=== PATIENT | female | born 1975 | race Caucasian/White ===

== ENCOUNTER 2017-06-23 06:51 | Emergency (ER) | payer OTHER ==
[2017-06-23 07:18] LABS: APPEARANCE HAZY (CLEAR); BACTERIA FEW /hpf (NONE SEEN); BILIRUBIN NEGATIVE (NEGATIVE); COLOR YELLOW (YELLOW); GLUCOSE NEGATIVE (NEGATIVE); KETONE NEGATIVE (NEGATIVE); MUCUS <1+ /lpf (NONE SEEN); NITRITE NEGATIVE (NEGATIVE); PROTEIN NEGATIVE (NEGATIVE); UROBILINOGEN NORMAL (NORMAL)
[2017-06-23 07:40] LABS: BASOPHILS 0.1 % (0-2); EOSINOPHILS 1.3 % (0-7); HEMATOCRIT 30.4 % (36.0-48.0); HEMOGLOBIN 9.5 g/dL (12-16); IMMATURE GRANULOCYTES 1.1 % (0-5); LYMPHOCYTES 19.6 % (15-50); MCHC 31.3 g/dL (31.0-37.0); MCV 76.8 fL (80.0-100.0); MONOCYTES 5.9 % (2-11); PLATELET COUNT 393 10x3/uL (130-400); RBC 3.96 10x6/uL (4.00-5.40); RDW 15.6 % (11.5-14.5); WBC 14.6 10x3/uL (4.8-10.8)
[2017-06-23 08:03] LABS: ALBUMIN 3.3 g/dL (3.4-5.0); ANION GAP 13.6 mmol/L (8-16); BILIRUBIN - TOTAL 0.3 mg/dL (0.2-1.3); CALCIUM 9.7 mg/dL (8.5-10.1); CARBON DIOXIDE 26.5 mmol/L (21.0-32.0); CREATININE - SERUM 0.9 mg/dL (0.6-1.3); POTASSIUM - SERUM 4.1 mmol/L (3.5-5.1)
[2017-06-23 08:25] LABS: HCG URINE NEGATIVE (NEGATIVE)
[2017-06-25 17:35] VITALS: BMI 67.6
== END 2017-06-23 09:55 | disposition home or self-care (01) ==
LOC: D.ER 06:51
PROVIDERS: Emergency Medicine; Family Medicine
DX: K59.00 Constipation, unspecified (principal); N39.0 Urinary tract infection, site not specified; D64.9 Anemia, unspecified; I10 Essential (primary) hypertension; K21.9 Gastro-esophageal reflux disease without esophagitis; E11.9 Type 2 diabetes mellitus without complications

== ENCOUNTER 2017-06-25 07:29 | Inpatient (IN) | payer OTHER ==
[~2017-06-25] VITALS: Ht 154.9 cm; Wt 160.7 kg
--- NOTE | ~2017-06-25 | OP ---
PATIENT NAME: ASPEN GARNICA MEDICAL RECORD: [id number] :73 LOCATION:[id number] ADMISSION DATE:06/25/17 SURGEON: MAZIN TAM MD DATE OF OPERATION: 06/27/2017 PREOPERATIVE DIAGNOSES: 1. Symptomatic gallstones. 2. Hepatomegaly. POSTOPERATIVE DIAGNOSES: 1. Symptomatic gallstones. 2. Acute cholecystitis. 3. Hepatomegaly. PROCEDURE: Laparoscopic cholecystectomy, intraoperative cholangiography without immediate surgeon interpretation, and a 14-gauge core needle liver biopsy. SURGEON: Mazin Tam MD SHANK FAKER: None. BLOOD LOSS: Minimal. ANESTHESIA: General. COMPLICATIONS: None. This operation was made significantly more difficult due to the patient's body habitus. The cholangiogram was a nondiagnostic. The patient has a very large stone impacted in the infundibulum of the gallbladder. The gallbladder wall was very thickened and the gallbladder was very large. OPERATIVE COURSE: The patient was conveyed to the operating room electively on 06/27/2017. General anesthesia was induced by anesthesia staff. The abdomen was sterilely prepped and draped. A transverse incision was accomplished cephalad to the umbilicus. I dissected down to the anterior abdominal wall fascia. Stay sutures with #1 Vicryl were placed on either side of the midline, which was incised. The peritoneal cavity was entered sharply. A 12-mm trocar was placed. CO2 insufflation was begun. Once a sufficient pneumoperitoneum had been achieved, a 5-mm trocar was inserted through an incision in the epigastrium. Another 5-mm trocar was inserted through an incision in the right upper quadrant. Another 5-mm trocar was inserted far laterally in the right upper quadrant. During insertion of the trocars, there was no apparent injury to the bowels, any intraperitoneal or retroperitoneal structures. An abdominal survey was undertaken. The indication for the liver biopsy was hepatomegaly. Under laparoscopic guidance, I percutaneously accessed the right upper quadrant utilizing a 14-gauge core needle liver biopsy device. Cores were obtained over the convexity of the liver. The biopsy sites were made hemostatic with electrocautery. OPERATIVE REPORT [id number] ASPEN GARNICA I then advanced a cholangiogram trocar. I punctured the fundus of the gallbladder. I aspirated bile and pus. I then injected dye. Under real time fluoroscopy cholangiographic images were obtained and these are sent to the radiologist for interpretation. I then aspirated and withdrew the cholangiogram trocar. The gallbladder was grasped with difficulty due to its friability and thickened wall. It was retracted cephalad. Blunt dissection was begun with the triangle of Calot. One cystic artery and one cystic duct were identified. These were clipped multiply and divided between clips. I then excised the gallbladder from the liver bed. The gallbladder was placed within a bag retrieval device and was withdrawn through the supraumbilical fascial defect. I then enmassed another endoscopic retrieval bag and withdrew the very large gallstone. I irrigated and aspirated in the right upper quadrant. There was no bleeding even at low pressure of 8. All trocars were removed and the abdomen desufflated. The supraumbilical fascial incision was closed with multiple interrupted horizontal mattress #1 Vicryls. The subdermis cephalad to the umbilicus was closed with 3-0 Vicryls. The skin was approximated with a running intracuticular 3-0 Vicryl. The other trocar sites were closed with interrupted intracuticular 3-0 Vicryls. Benzoin and Steri-Strips were applied. The patient was then extubated and conveyed to post-anesthesia care unit where she was in stable condition. TRANSINT:[id number] Voice Confirmation ID: [id number] DOCUMENT ID: [id number] MAZIN TAM MD at 1157 CC: MIRIAN HUNTER [id number] DICTATION DATE: 06/27/17 [facility] MANAGER: 06/27/171912 DIS IN 06/29/17 [facility] [address] [id number]
--- NOTE | ~2017-06-25 | CN ---
PATIENT NAME:ASPEN GARNICA MEDICAL RECORD: [id number] : 73 LOCATION:[facility] [place] ADMIT DATE: 06/25/17 ACCOUNT: [id number] CONSULTING PHYSICIAN: DM TAM MD REFERRING PHYSICIAN: MIRIAN HUNTER MD DATE OF CONSULTATION: 06/25/2017 CHIEF COMPLAINT: Pain. HISTORY OF PRESENT ILLNESS: The patient has been having right upper quadrant pain as well as nausea and vomiting. I personally reviewed her CT images. I personally reviewed the CT report. The patient's condition is consistent with symptomatic gallstones. She does have Francisco sign. The pain radiates around to the right side to the back. She does have bloating. This is a consultation note addendum. For the typed portion of the consult note, please see the chart. My plan is going to be to perform a laparoscopic cholecystectomy, intraoperative cholangiography with possible liver biopsy sometime in the near future. For the typed portion of the consult note, please see the chart. This will include the past medical and surgical history, current medications, allergies, and family history. REVIEW OF SYSTEMS: Positive for nausea. Positive for vomiting. Positive for diarrhea. Positive for abdominal pain. No fever. PHYSICAL EXAMINATION: GENERAL: The patient does not appear acutely ill. She does appear chronically ill. VITAL SIGNS: Reviewed. The entire physical examination was performed in the presence of a female nurse. EARS: External ears appear normal. EYES: Extraocular movements are intact. NECK: Trachea is midline. CHEST: No intercostal retractions. PULMONARY: Nonlabored, no stridor. ABDOMEN: As described above. There is a large panniculus. INTEGUMENT: There is an intertriginous rash. BACK: No thoracic kyphosis. LYMPHATICS: No lymphangitic streaking of the exposed extremities. GAIT: Waddling gait. NEUROLOGIC: Nonfocal, no lethargy. The patient answers questions appropriately, moves all extremities well. PSYCHIATRIC: Normal affect. IMPRESSION: Symptomatic gallstones. PLAN: Laparoscopic cholecystectomy, intraoperative cholangiography, liver biopsy sometime in the near future. TRANSINT:[id number] Voice Confirmation ID: [id number] DOCUMENT ID: [id number] CONSULT REPORT [id number] ASPEN GARNICA ROBERT MD at 1157 CC: MIRIAN HUNTER [id number] DICTATION DATE: 06/27/17 1639 SUPERVISOR SPRING UP: 06/27/17 1652 DIS IN 06/29/17 [facility] [address] [facility], [facility]
--- NOTE | ~2017-06-25 | HP ---
PATIENT: ASPEN GARNICA MEDICAL RECORD: [id number] ACCOUNT: [id number] LOCATION:D[facility] : 73 ADMISSION DATE: 06/25/17 HISTORY AND PHYSICAL EXAMINATION DATE OF ADMISSION: 06/25/2017 CHIEF COMPLAINT: Abdominal pain. HISTORY OF PRESENT ILLNESS: The patient is a 41-year-old morbidly obese female who presents complaining of having abdominal pain. She had presented to the Emergency Room on Monday, was told that she possibly had constipation and states that she continued to have pain and nausea, no vomiting and presented to the Emergency Room for evaluation. PAST MEDICAL HISTORY: Significant that she has had hypertension. She has also had diabetes mellitus and morbid obesity. She suffered from depression in the past. She has had some anemia. FAMILY HISTORY: Father has hypertension, CHF, and also gout. Mother has hypertension. SOCIAL HISTORY: The patient is 4-year college graduate. She is not . She is a 1/2 pack per day smoker. She denies any ethanol use or abuse. ALLERGIES: AMOXICILLIN AND JUSTIN'S WORT. MEDICATIONS: Include atenolol 25 mg b.i.d., Jardiance 25 mg once a day, lisinopril 10 mg once daily, metformin 500 mg 1 tablet once a day, pantoprazole 40 mg once a day. REVIEW OF SYSTEMS: CONSTITUTIONAL: She denies any headaches, seizure or syncope. She denied change in visual or auditory acuity. PULMONARY: She denies any shortness of breath, cough, congestion, history of TB, asthma, or bronchitis. CARDIOVASCULAR: No chest pain, palpitation. GASTROINTESTINAL: As stated above. GENITOURINARY: No urgency, frequency, or dysuria. PHYSICAL EXAMINATION: GENERAL: This is a morbidly obese white female who subjectively is experiencing abdominal discomfort. Her weight is 357 pounds. VITAL SIGNS: Her temperature is 98, her pulse is 97, respirations 20, her blood pressure is 128/92. HEENT: Her head is normocephalic. No lesions. Ears: TMs clear. Eyes: Pupils equal, round, reactive to light. Her extraocular movements are intact. Her nasal cavity, oral cavity, oropharynx clear. NECK: Supple. There is no adenopathy. HEART: Has a regular rate. LUNGS: Clear. ABDOMEN: Subjectively tender in the midepigastrium and right upper quadrant tenderness. No rebound, no guarding. EXTREMITIES: Lower extremities have no edema. HISTORY AND PHYSICAL [id number] ASPEN GARNICA LABORATORY DATA: The patient had a white count of 17.8, her hemoglobin was 9.3, hematocrit 30.3, her platelets are 426. She has a low MCV and MCHC. Sodium is 135, potassium 4.4, chloride is 101, CO2 is 26, BUN 13, creatinine 0.9. Her blood sugar is 119. Lactic acid is negative. Liver function normal. Amylase and lipase are normal as well. IMAGING: The patient had a gallbladder ultrasound showing some cholelithiasis, but no ductal dilatation. There was some hepatomegaly. CT scan of the abdomen revealed hepatomegaly, gallstone, no ductal dilatation, otherwise unremarkable. The patient's urinalysis unremarkable with exception of moderate bacteria. ASSESSMENT: Morbid obesity with upper abdominal discomfort, nausea, vomiting, diabetes mellitus, hypertension, and history of anemia. PLAN: The patient will be admitted. We will place her on Protonix drip. Also, have Zofran for nausea. Also, schedule the patient for a PIPIDA scan in a.m. GI consultation for possible EGD. Continue to evaluate. TRANSINT:[id number] Voice Confirmation ID: [id number] DOCUMENT ID: [id number] MIRIAN HUNTER MD at 0557 CC: [id number] DICTATION DATE: 06/25/17 1349 THREAD PULLER: 06/25/17 1416 ADM IN [id number] [place] [address]
[2017-06-25 08:08] LABS: APPEARANCE CLEAR (CLEAR); BILIRUBIN NEGATIVE (NEGATIVE); COLOR YELLOW (YELLOW); GLUCOSE NEGATIVE (NEGATIVE); KETONE NEGATIVE (NEGATIVE); NITRITE NEGATIVE (NEGATIVE); PROTEIN NEGATIVE (NEGATIVE); UROBILINOGEN NORMAL (NORMAL)
[2017-06-25 08:09] LABS: BACTERIA MODERATE /hpf (NONE SEEN); EPITHELIAL CELLS 0-5 /hpf (0-5); RED CELLS - URINE 0-5 /hpf (0-5); WHITE CELLS - URINE 0-5 /hpf (0-5)
[2017-06-25 08:12] LABS: BASOPHILS 0.2 % (0-2); EOSINOPHILS 0.7 % (0-7); HEMATOCRIT 30.1 % (36.0-48.0); HEMOGLOBIN 9.3 g/dL (12-16); LYMPHOCYTES 13.8 % (15-50); MCH 23.8 pg (26.0-34.0); MCHC 30.9 g/dL (31.0-37.0); MEAN PLATELET VOLUME 9.8 fL (7.4-10.4); MONOCYTES 4.7 % (2-11); NEUTROPHILS 79.6 % (40-80); PLATELET COUNT 426 10x3/uL (130-400); RBC 3.91 10x6/uL (4.00-5.40); RDW 15.8 % (11.5-14.5); WBC 17.8 10x3/uL (4.8-10.8)
[2017-06-25 08:31] LABS: ALBUMIN 3.3 g/dL (3.4-5.0); ANION GAP 12.3 mmol/L (8-16); BILIRUBIN - TOTAL 0.3 mg/dL (0.2-1.3); CALCIUM 9.1 mg/dL (8.5-10.1); CARBON DIOXIDE 26.1 mmol/L (21.0-32.0); CREATININE - SERUM 0.9 mg/dL (0.6-1.3); POTASSIUM - SERUM 4.4 mmol/L (3.5-5.1); PROTEIN - SERUM 7.4 g/dL (6.4-8.2)
[2017-06-25 09:23] LABS: HCG URINE NEGATIVE (NEGATIVE)
[2017-06-25 14:47] LABS: % SATURATION 8 % (15-55); IRON 22 ug/dl (35-150); TOTAL IRON BIND CAPACITY 246 ug/dl (260-445); UNSAT IRON BIND CAPACITY 224 ug/dl (150-375)
[2017-06-25] MEDS ORDERED: METFORMIN HCL500 M1 PO (15:02)
[2017-06-25] MEDS ORDERED: PRINIVIL20 MG PO (15:03)
[2017-06-25] MEDS ORDERED: NORVASC5 MG PO (15:04)
[2017-06-25 16:13] VITALS: BP 162/73; BMI 67.6
[2017-06-25 17:35] VITALS: Ht 154.9 cm; Wt 160.7 kg
[2017-06-26 04:58] LABS: BASOPHILS 0.2 % (0-2); HEMATOCRIT 29.1 % (36.0-48.0); HEMOGLOBIN 8.8 g/dL (12-16); IMMATURE GRANULOCYTES 0.6 % (0-5); LYMPHOCYTES 15.9 % (15-50); MCH 23.3 pg (26.0-34.0); MCHC 30.2 g/dL (31.0-37.0); MCV 77.2 fL (80.0-100.0); MEAN PLATELET VOLUME 10.2 fL (7.4-10.4); MONOCYTES 7.9 % (2-11); NEUTROPHILS 74.4 % (40-80); PLATELET COUNT 440 10x3/uL (130-400); RBC 3.77 10x6/uL (4.00-5.40); RDW 15.9 % (11.5-14.5); WBC 15.5 10x3/uL (4.8-10.8)
[2017-06-26 05:00] LABS: APTT 33.9 SECONDS (22.8-39.4); INR 1.02 (0.85-1.17)
[2017-06-26 05:23] LABS: ALBUMIN 2.7 g/dL (3.4-5.0); ALKALINE PHOSPHATASE 59 U/L (46-116); ALT (SGPT) 18 U/L (10-68); CALC OSMOLALITY 272 mosm/kg (275-300); CALCIUM 8.6 mg/dL (8.5-10.1); CARBON DIOXIDE 27.7 mmol/L (21.0-32.0); CHLORIDE - SERUM 102 mmol/L (98-107); CREATININE - SERUM 0.8 mg/dL (0.6-1.3); GLUCOSE 118 mg/dL (74-106); POTASSIUM - SERUM 4.4 mmol/L (3.5-5.1); PROTEIN - SERUM 7.1 g/dL (6.4-8.2); SODIUM 137 mmol/L (136-145); THYROID STIMULATING HORMONE 1.49 uIU/mL (0.36-3.74); UREA NITROGEN 8 mg/dL (7-18); eGFR NON AFRICAN AMERICAN 83 mL/min (90-120)
[2017-06-26 05:26] VITALS: BP 151/96
[2017-06-26 09:01] VITALS: BP 152/79
[2017-06-26 13:06] VITALS: BP 118/60
[2017-06-26 21:56] VITALS: BP 162/64
[2017-06-27] VITALS (7 sets, daily range): BP systolic 114–164; BP diastolic 64–578
[2017-06-27 04:48] LABS: BASOPHILS 0.2 % (0-2); EOSINOPHILS 2.1 % (0-7); HEMATOCRIT 28.3 % (36.0-48.0); HEMOGLOBIN 8.6 g/dL (12-16); IMMATURE GRANULOCYTES 0.8 % (0-5); LYMPHOCYTES 18.4 % (15-50); MCH 23.7 pg (26.0-34.0); MCHC 30.4 g/dL (31.0-37.0); MEAN PLATELET VOLUME 9.8 fL (7.4-10.4); MONOCYTES 10.9 % (2-11); NEUTROPHILS 67.6 % (40-80); PLATELET COUNT 438 10x3/uL (130-400); RBC 3.63 10x6/uL (4.00-5.40); RDW 15.8 % (11.5-14.5); WBC 15.5 10x3/uL (4.8-10.8)
[2017-06-27 05:15] LABS: ALBUMIN 2.6 g/dL (3.4-5.0); ALKALINE PHOSPHATASE 58 U/L (46-116); ALT (SGPT) 14 U/L (10-68); CALC OSMOLALITY 275 mosm/kg (275-300); CALCIUM 8.4 mg/dL (8.5-10.1); CARBON DIOXIDE 28.3 mmol/L (21.0-32.0); CHLORIDE - SERUM 102 mmol/L (98-107); CREATININE - SERUM 0.8 mg/dL (0.6-1.3); GLUCOSE 103 mg/dL (74-106); POTASSIUM - SERUM 3.9 mmol/L (3.5-5.1); PROTEIN - SERUM 7.1 g/dL (6.4-8.2); SODIUM 139 mmol/L (136-145); UREA NITROGEN 7 mg/dL (7-18); eGFR NON AFRICAN AMERICAN 83 mL/min (90-120)
[2017-06-27 08:21] LABS: FOLATE (FOLIC ACID) - SERUM 8.7 ng/mL (>3.0)
[2017-06-28 04:43] LABS: BASOPHILS 0.1 % (0-2); EOSINOPHILS 0 % (0-7); HEMATOCRIT 28.7 % (36.0-48.0); HEMOGLOBIN 8.7 g/dL (12-16); IMMATURE GRANULOCYTES 0.6 % (0-5); MCH 23.7 pg (26.0-34.0); MCHC 30.3 g/dL (31.0-37.0); MCV 78.2 fL (80.0-100.0); MEAN PLATELET VOLUME 10.1 fL (7.4-10.4); MONOCYTES 6.9 % (2-11); NEUTROPHILS 83.4 % (40-80); PLATELET COUNT 433 10x3/uL (130-400); RBC 3.67 10x6/uL (4.00-5.40); RDW 15.8 % (11.5-14.5)
[2017-06-28 04:46] LABS: WBC 19.6 10x3/uL (4.8-10.8)
[2017-06-28 04:47] VITALS: BP 154/64
[2017-06-28 05:08] LABS: ALBUMIN 2.5 g/dL (3.4-5.0); ANION GAP 12.6 mmol/L (8-16); BILIRUBIN - TOTAL 0.3 mg/dL (0.2-1.3); CALCIUM 8.5 mg/dL (8.5-10.1); CARBON DIOXIDE 26.6 mmol/L (21.0-32.0); POTASSIUM - SERUM 4.2 mmol/L (3.5-5.1); PROTEIN - SERUM 7.2 g/dL (6.4-8.2)
[2017-06-28 08:03] VITALS: BP 128/68
[2017-06-28 12:35] VITALS: BP 123/68
[2017-06-28 21:41] VITALS: BP 142/52
[2017-06-29 02:35] VITALS: BP 144/50
[2017-06-29 05:09] LABS: HEMATOCRIT 28.8 % (36.0-48.0); HEMOGLOBIN 8.8 g/dL (12-16); MCH 23.8 pg (26.0-34.0); MCHC 30.6 g/dL (31.0-37.0); MCV 77.8 fL (80.0-100.0); MEAN PLATELET VOLUME 10.2 fL (7.4-10.4); PLATELET COUNT 483 10x3/uL (130-400); RDW 15.9 % (11.5-14.5)
[2017-06-29 05:24] LABS: CALC OSMOLALITY 267 mosm/kg (275-300); CALCIUM 8.3 mg/dL (8.5-10.1); CARBON DIOXIDE 28.7 mmol/L (21.0-32.0); CHLORIDE - SERUM 100 mmol/L (98-107); CREATININE - SERUM 0.8 mg/dL (0.6-1.3); GLUCOSE 117 mg/dL (74-106); POTASSIUM - SERUM 3.9 mmol/L (3.5-5.1); SODIUM 134 mmol/L (136-145); UREA NITROGEN 10 mg/dL (7-18); eGFR NON AFRICAN AMERICAN 83 mL/min (90-120)
[2017-06-29 06:08] LABS: EOSINOPHILS 1 % (0-7); LYMPHOCYTES 9 % (15-50); MONOCYTES 3 % (2-11); NEUTROPHILS 84 % (40-80); PLATELET ESTIMATE NORMAL
[2017-06-29 06:20] VITALS: BP 104/74
[2017-06-29] MEDS ORDERED: NORCO 7.5/325 T1 TA1 PO (06:40)
[2017-06-29] MEDS ORDERED: ZOFRAN ODT4 MG/UDTAB PO (06:41)
[2017-06-29] MEDS ORDERED: FERROUS SULFAT325 MG PO (06:42)
[2017-06-29 09:07] VITALS: BP 123/63
== END 2017-06-29 14:08 | disposition home or self-care (01) | DRG 418 ==
LOC: D.ER 07:29 → D.MS 13:44 → OBSVTIME 13:44 → D.MS 13:44
PROVIDERS: Family Medicine; Internal Medicine Gastroenterology; Surgery
PROC: 0DB78ZX Excision of Stomach, Pylorus, Via Natural or Artificial Opening Endoscopic, Diagnostic (ICD-10-PCS; principal; 2017-06-26 16:00)
PROC: BF121ZZ Fluoroscopy of Gallbladder using Low Osmolar Contrast (ICD-10-PCS; 2017-06-27)
PROC: 0FB03ZX Excision of Liver, Percutaneous Approach, Diagnostic (ICD-10-PCS; 2017-06-27)
PROC: 0FT44ZZ Resection of Gallbladder, Percutaneous Endoscopic Approach (ICD-10-PCS; 2017-06-27 13:30)
DX: K80.00 Calculus of gallbladder with acute cholecystitis without obstruction (principal); Z68.44 Body mass index [BMI] 60.0-69.9, adult; R16.0 Hepatomegaly, not elsewhere classified; D50.0 Iron deficiency anemia secondary to blood loss (chronic); E11.9 Type 2 diabetes mellitus without complications; F17.200 Nicotine dependence, unspecified, uncomplicated; K44.9 Diaphragmatic hernia without obstruction or gangrene; E66.01 Morbid (severe) obesity due to excess calories; K29.70 Gastritis, unspecified, without bleeding